=== PATIENT | male | born 1940 | race Caucasian/White ===

== ENCOUNTER → 2016-12-24 | Outpatient (CLI) | payer MEDICARE, OTHER ==
[~2016-12-24] MED LIST: APIX2.5T OR; ASPI-498 PO; BENA20TA70 PO; BENAZEPRIL HCL 10 MG TAB PO ONE; CYANOCOBALAMIN (B-12) 1000 MCG/1 ML VIAL IM ONE; CYANOCOBALAMIN (B-12) 1000 MCG/1 ML VIAL ONE; DIGO0.2570 PO; FOLI1TAB6 PO; FURO40TA4 PO; MAGN400T23 PO; MET50T PO; METF-316 PO; NOR5T PO; PANT1INJ3 PO; POTASSIUM CHL 20 Meq TABLET PO ONE; SOTA80TA20 PO; TRAM50TA2 PO; [UNRECOGNIZED DRUG - CODE] IV; metFORMIN HYDROCHLORIDE 500 MG TAB PO SCH
[2016-12-24 16:20] VITALS: BP 140/68
== END | disposition home or self-care (01) ==
LOC: CHF HDHVI 13:36
PROVIDERS: ATTEND Internal Medicine Cardiovascular Disease
DX: I11.0 Hypertensive heart disease with heart failure (principal); I48.91 Unspecified atrial fibrillation; E78.4 Other hyperlipidemia; Z95.0 Presence of cardiac pacemaker; D64.9 Anemia, unspecified; E11.9 Type 2 diabetes mellitus without complications
CPT/HCPCS: 93005; 93701; 96372; G0463; J3420